=== PATIENT | female | born 1980 | race Caucasian/White ===

== ENCOUNTER 2016-04-04 19:36 | Emergency (ER) | payer OTHER | END 2016-04-04 21:00 | disposition home or self-care (01) | LOC: ER1 19:36 | DX: S39.012A Strain of muscle, fascia and tendon of lower back, initial encounter (principal); F17.210 Nicotine dependence, cigarettes, uncomplicated; Z88.1 Allergy status to other antibiotic agents; Z91.040 Latex allergy status; X58.XXXA Exposure to other specified factors, initial encounter | CPT/HCPCS: 96372; 99283; J1100; J1885 ==

== ENCOUNTER 2020-08-02 08:42 | Emergency (ER) | payer BC, OTHER ==
[2020-08-02] MEDS ORDERED: MEDROL DOSEPAK 24 MG PO (10:23)
[2020-08-02] MEDS ORDERED: CYCLOBENZAPRINE10 MG PO (10:23)
== END 2020-08-02 10:38 | disposition home or self-care (01) ==
LOC: ER1 08:42
DX: M54.42 Lumbago with sciatica, left side (principal); F17.200 Nicotine dependence, unspecified, uncomplicated; Z88.1 Allergy status to other antibiotic agents; Z91.040 Latex allergy status
CPT/HCPCS: 96372; 99283; J1100; J1885